=== PATIENT | male | born 1985 | race Caucasian/White ===

== ENCOUNTER 2018-06-30 17:55 | Emergency (ER) | payer OTHER ==
[~2018-06-30] VITALS: Ht 185.4 cm; Wt 68.2 kg
[2018-06-30 17:56] VITALS: BP 131/70
[2018-06-30] MEDS ORDERED: ACETAMINOPHEN 325 MG TAB PO ONE (20:00)
[2018-06-30] MEDS ORDERED: KETOROLAC 30 MG/ML VIAL (J1885) IV ONE (20:45)
[2018-06-30] MEDS ORDERED: NS 1,000 ML IV ONE (20:45)
[2018-06-30 20:56] LABS: BASO % 0.1 % (0.0-1.0); HEMATOCRIT 42.8 % (42.0-52.0); HEMOGLOBIN 14.9 g/dl (13.5-17.5); LYMPH # 0.4 10^3/uL (1.5-4.5); LYMPH % 2.1 % (24.0-44.0); MEAN CORPUSCULAR HEMOGLOBIN 28.4 pg (27.0-33.0); MEAN CORPUSCULAR HGB CONC 34.8 g/dl (32.0-36.5); MEAN CORPUSCULAR VOLUME 81.5 fl (80.0-96.0); MONO # 0.7 10^3/uL (0.0-0.8); MONO % 3.4 % (0.0-5.0); NEUTROPHILS # 18.3 10^3/uL (1.8-7.7); NEUTROPHILS % 93.7 % (36.0-66.0); PLATELET COUNT, AUTOMATED 220 10^3/uL (150-450); RED BLOOD COUNT 5.25 10^6/uL (4.30-6.10); WHITE BLOOD COUNT 19.5 10^3/uL (4.0-10.0)
[2018-06-30 21:04] LABS: APPEARANCE, URINE CLEAR (CLEAR); BACTERIA, URINE AUTO NEGATIVE (NEGATIVE); BILIRUBIN, URINE AUTO NEGATIVE (NEGATIVE); BLOOD, URINE BLOOD NEGATIVE (NEGATIVE); COLOR, URINE YELLOW (YELLOW); GLUCOSE, URINE (UA) AUTO NEGATIVE (NEGATIVE); KETONE, URINE AUTO 2+ mg/dL (NEGATIVE); LEUKOCYTE ESTERASE, URINE AUTO NEGATIVE (NEGATIVE); MUCUS, URINE SMALL (NEGATIVE); NITRITE, URINE AUTO NEGATIVE (NEGATIVE); PROTEIN, URINE AUTO NEGATIVE (NEGATIVE); RBC, URINE AUTO 1 /HPF (0-3); SPECIFIC GRAVITY URINE AUTO 1.027 (1.002-1.035); SQUAMOUS EPITHELIAL CELL UR AU 0 /HPF (0-6); WBC, URINE AUTO 0 /HPF (0-3)
[2018-06-30 21:20] LABS: ALBUMIN 4.3 GM/DL (3.2-5.2); ALT/SGPT 22 U/L (12-78); BILIRUBIN,DIRECT 0.3 MG/DL (0.0-0.2); BILIRUBIN,TOTAL 0.9 MG/DL (0.2-1.0); BLOOD UREA NITROGEN 10 MG/DL (7-18); CALCIUM LEVEL 9.1 MG/DL (8.5-10.1); CARBON DIOXIDE LEVEL 24 MEQ/L (21-32); CHLORIDE LEVEL 102 MEQ/L (98-107); CREATININE FOR GFR 1.05 MG/DL (0.70-1.30); GLOMERULAR FILTRATION RATE > 60.0 (>60); GLUCOSE, FASTING 106 MG/DL (70-100); POTASSIUM SERUM 3.7 MEQ/L (3.5-5.1); SODIUM LEVEL 136 MEQ/L (136-145); TOTAL PROTEIN 7.7 GM/DL (6.4-8.2)
[2018-06-30 21:29] LABS: INFLUENZA A AMPLIFICATION NEGATIVE (NEGATIVE); INFLUENZA B AMPLIFICATION NEGATIVE (NEGATIVE)
[2018-06-30] MEDS ORDERED: cefTRIAXone SOD 1 GM in D5W MINI-BAG PLUS 50 ML IV ONE (23:45)
[2018-06-30] MEDS ORDERED: CEPHALEXIN 500 MG CAP As Ordered ONE (23:50)
[2018-06-30] MEDS ORDERED: KEFL500C17 PO (23:50)
[2018-07-01] MEDS ORDERED: cefTRIAXone SOD 1 GM VIAL (J0696) IM ONE
[2018-07-01] MEDS ORDERED: ONDANSETRON 4 MG ORAL DISINTEGRATING TAB (Q0162 PER 1MG) PO ONE
[2018-07-01] MEDS ORDERED: CEPHALEXIN 500 MG CAP PO ONE
[2018-07-01] MEDS ORDERED: LIDOCAINE 1% SDV 5 ML VIAL DILUENT ONE
[2018-07-01] MEDS ORDERED: EQ A1CRE3 TOP (23:07)
== END 2018-07-01 00:12 | disposition home or self-care (01) ==
LOC: M ED 17:55
DX: L03.314 Cellulitis of groin (principal); R50.9 Fever, unspecified; D72.829 Elevated white blood cell count, unspecified; Z88.2 Allergy status to sulfonamides
CPT/HCPCS: 80048; 80076; 81001; 85025; 87040; 87077; 87502; 96372; 96374; 99284; J0696; J1885; Q0162

== ENCOUNTER → 2018-09-10 | Outpatient (REF) ==
[~2018-09-10] MED LIST: KEFL500C17 PO; TERB1CRE2 TOP
[2018-09-10 13:22] LABS: RUBELLA IgG QUALITATIVE IMMUNE (IMMUNE)
== END ==
LOC: M LAB 11:52
PROVIDERS: ATTEND Nurse Practitioner Adult Health
DX: Z02.89 Encounter for other administrative examinations (principal)